=== PATIENT | male | born 1995 | race Caucasian/White ===

== ENCOUNTER 2023-03-04 11:28 | Outpatient (CLI) | payer BC, SELFPAY ==
[2023-03-04 15:35] LABS: GC DNA Amplified* NOT DETECTED (No Detected)
[2023-03-04 15:49] LABS: Chlamydia DNA Amplified* DETECTED (No Detected)
== END 2023-03-04 11:29 | disposition home or self-care (01) ==
PROVIDERS: Visit Provider Nurse Practitioner Family
DX: Z11.3 Encounter for screening for infections with a predominantly sexual mode of transmission (principal)
CPT/HCPCS: 86592; 86703; 86803; 87491; 87591